=== PATIENT | male | born 1940 | race Caucasian/White ===

== ENCOUNTER → 2020-12-09 10:52 | Outpatient (REF) | payer OTHER, SELFPAY ==
[2020-12-09 11:31] LABS: MANUAL DIFF FLAG NO
[2020-12-09 11:37] LABS: Basophils Percent Auto 0.3 % (0-2); Eosinophils Absolute Auto 0.7 X10*3/uL (0.0-0.4); Eosinophils Percent Auto 7.7 % (0-4); Hematocrit 44.4 % (42-52); Hemoglobin 14.7 g/dl (14.0-18.0); Imm Gran Abs Auto 0.05 X10*3/uL (0.00-0.03); Imm Gran Pct Auto 0.6 % (0.0-0.4); Lymphocytes Absolute Auto 1.9 X10*3/uL (1.2-4.9); Lymphocytes Percent Auto 21.5 % (20-40); Mean Corpuscular HGB Conc 33.1 g/dl (31.0-36.0); Mean Corpuscular Hemoglobin 30.9 pg (27.0-33.0); Mean Corpuscular Volume 93.3 fL (80-98); Monocytes Absolute Auto 0.6 X10*3/uL (0.1-1.2); Neutrophils Absolute Auto 5.5 X10*3/uL (2.0-8.3); Neutrophils Percent Auto 62.9 % (45-73); Platelet Count 225 X10*3/uL (160-400); Red Blood Count 4.76 X10*6/uL (4.60-5.80); Red Cell Distribution Width 12.9 % (11.0-16.0); White Blood Count 8.8 X10*3/uL (4.8-10.8)
[2020-12-09 12:07] LABS: Alanine Aminotransferase 14 U/L (0-40); Albumin Level 4.3 g/dL (3.5-5.0); Alkaline Phosphatase 75 U/L (39-117); Anion Gap 10 (12-20); Aspartate Amino Transferase 21 U/L (5-37); Bilirubin Direct 0.2 mg/dL (0.0-0.5); Bilirubin Total 0.4 mg/dL (0.0-1.0); Blood Urea Nitrogen 19 mg/dL (9-16); Calcium 9.2 mg/dL (8.4-10.2); Carbon Dioxide 31 mmol/L (22-29); Chloride 106 mmol/L (96-108); Estimated Glomerular Filt Rate 58; Glucose Fasting 94 mg/dL (60-99); Potassium 4.2 mmol/L (3.3-5.1); Rheumatoid Factor < 15.0 IU/mL (<15.0); Sodium 143 mmol/L (135-145); Total Protein 7.4 g/dL (6.5-8.0)
[2020-12-13 22:32] LABS: Mixing Study - PT 10.9 sec (9.0-11.5); PTT LA 34 sec (< OR = 40)
== END ==
LOC: HO.CARD 10:52
PROVIDERS: PCP Internal Medicine; Visit Provider Nurse Practitioner Family
DX: Z01.811 Encounter for preprocedural respiratory examination (principal); I10 Essential (primary) hypertension; M19.90 Unspecified osteoarthritis, unspecified site; Z87.19 Personal history of other diseases of the digestive system
CPT/HCPCS: 36415; 80048; 80076; 85025; 85611; 85732; 86431

== ENCOUNTER → 2020-12-17 07:58 | Outpatient (REF) | payer OTHER, SELFPAY ==
--- NOTE | 2020-12-17 08:08 | ECG_ITS ---
Test Reason : M51.26 PREOP Blood Pressure : / mmHG Vent. Rate : 057 BPM Atrial Rate : 057 BPM P-R Int : 200 ms QRS Dur : 090 ms QT Int : 394 ms P-R-T Axes : 056 -53 082 degrees QTc Int : 383 ms Sinus bradycardia Left axis deviation Nonspecific T wave abnormality Abnormal ECG No previous ECGs available Referred By: Vilma Pollard Electronically Signed By:ANTON PERRIN MD
== END ==
LOC: HO.CARD 07:58
PROVIDERS: PCP Nurse Practitioner Family; Visit Provider Nurse Practitioner Family
DX: Z01.818 Encounter for other preprocedural examination (principal); M51.26 Other intervertebral disc displacement, lumbar region; R00.1 Bradycardia, unspecified; R94.31 Abnormal electrocardiogram [ECG] [EKG]
CPT/HCPCS: 93005

== ENCOUNTER 2021-07-01 08:03 | Outpatient (REF) | payer MEDICARE, MEDICAID, SELFPAY ==
[2021-07-01 09:12] LABS: MANUAL DIFF FLAG NO
[2021-07-01 09:17] LABS: Basophils Percent Auto 0.2 % (0-2); Eosinophils Absolute Auto 0.7 X10*3/uL (0.0-0.4); Eosinophils Percent Auto 7.7 % (0-4); Hematocrit 42.3 % (42-52); Hemoglobin 14.6 g/dl (14.0-18.0); Imm Gran Abs Auto 0.04 X10*3/uL (0.00-0.03); Imm Gran Pct Auto 0.4 % (0.0-0.4); Lymphocytes Absolute Auto 2.1 X10*3/uL (1.2-4.9); Lymphocytes Percent Auto 22.4 % (20-40); Mean Corpuscular HGB Conc 34.5 g/dl (31.0-36.0); Mean Corpuscular Hemoglobin 31.5 pg (27.0-33.0); Mean Corpuscular Volume 91.4 fL (80-98); Mean Platelet Volume 10.4 fL (9.4-12.4); Monocytes Absolute Auto 0.6 X10*3/uL (0.1-1.2); Monocytes Percent Auto 6.1 % (2-11); Neutrophils Absolute Auto 5.8 X10*3/uL (2.0-8.3); Neutrophils Percent Auto 63.2 % (45-73); Platelet Count 196 X10*3/uL (160-400); Red Blood Count 4.63 X10*6/uL (4.60-5.80); Red Cell Distribution Width 12.5 % (11.0-16.0); White Blood Count 9.2 X10*3/uL (4.8-10.8)
[2021-07-01 09:43] LABS: Cholesterol 157 mg/dL; HDL Cholesterol 33 mg/dL; LDL Cholesterol Calculated 99 mg/dl; Magnesium 1.9 mg/dL (1.6-2.6); Triglycerides 127 mg/dL
[2021-07-10 16:05] LABS: Vitamin D 25-OH, D2 16 ng/mL; Vitamin D 25-OH, D3 19 ng/mL; Vitamin D 25-OH, Total 35 ng/mL (30-100)
== END 2021-07-01 08:04 | disposition home or self-care (01) ==
LOC: HO.LAB 08:03
PROVIDERS: PCP Internal Medicine; Visit Provider Internal Medicine
DX: R25.2 Cramp and spasm (principal); E78.5 Hyperlipidemia, unspecified; I10 Essential (primary) hypertension; E55.9 Vitamin D deficiency, unspecified; D64.9 Anemia, unspecified; J44.9 Chronic obstructive pulmonary disease, unspecified
CPT/HCPCS: 36415; 80061; 82306; 83735; 85025

== ENCOUNTER 2021-07-27 08:20 | Emergency (ER) | payer MEDICARE, MEDICAID, SELFPAY ==
[2021-07-27 09:18] VITALS: BP 139/104; PULSE 87; RESP 18; TEMP 36.4; O2SAT 96; BMI 25.0
--- NOTE | 2021-07-27 09:30 | ED.MALEGU ---
HPI - Male Genitourinary General Chief complaint: Urogenital-Male Stated complaint: diff urinating Time Seen by Provider: 07/27/21 09:30 Source: patient Mode of arrival: ambulatory Limitations: no limitations History of Present Illness HPI Narrative: patient with difficulty urinating for the past few days, pain with urination, suprapubic tenderness Onset (ago): day(s) Duration: constant Severity: moderate Associated symptoms: Reports urinary retention and dysuria Related Data Home Medications Medication Instructions Recorded Confirmed apremilast 30 mg tablet (Otezla) 30 mg PO BID 06/30/21 06/30/21 Previous Rx's Medication Instructions Recorded acetaminophen 650 mg 650 mg PO Q8H PRN 90 Days #270 tab 03/16/21 tablet,extended release budesonide-formoterol HFA 80 2 puff INHALATION BID 30 Days 03/16/21 mcg-4.5 mcg/actuation aerosol #10.2 g inhaler lisinopril 10 1 tab PO DAILY 90 Days #90 tab 03/16/21 mg-hydrochlorothiazide 12.5 mg tablet oxybutynin chloride 10 mg 10 mg PO DAILY 90 Days #90 tab 03/16/21 tablet,extended release 24 hr polyethylene glycol 3350 17 17 g PO DAILY 10 Days #170 g 03/16/21 gram/dose oral powder (Miralax) terazosin 1 mg capsule 1 mg PO BEDTIME 90 Days #90 cap 03/16/21 tiotropium bromide 18 mcg capsule 1 cap INHALATION DAILY 60 Days #60 03/16/21 with inhalation device (Spiriva inh with HandiHaler) clotrimazole-betamethasone 1 1 appl TOPICAL BID 15 Days #45 g 04/08/21 %-0.05 % topical cream sennosides 8.6 mg tablet (senna) 8.6 mg PO BEDTIME PRN #30 tab 04/20/21 cholecalciferol (vitamin D3) 25 25 mcg PO DAILY 30 Days #30 cap 05/25/21 mcg (1,000 unit) capsule pantoprazole 40 mg tablet,delayed 40 mg PO DAILY 90 Days #90 tab 06/08/21 release gabapentin 300 mg capsule 300 mg PO TID 60 Days #180 cap 06/16/21 baclofen 20 mg tablet 20 mg PO BID PRN 90 Days #180 tab 06/30/21 celecoxib 200 mg capsule 200 mg PO DAILY PRN #30 cap 07/04/21 cefuroxime axetil 500 mg tablet 500 mg PO BID #14 tab 07/27/21 Allergies Allergy/AdvReac Type Severity Reaction Status Date / Time No Known Allergies Allergy Verified 06/30/21 08:47 Review of Systems Constitutional: Constitutional: Reports no additional constitutional complaints Eyes: Eyes: Reports no additional eye complaints ENT: Denies dizziness Cardiovascular: Cardiovascular: Reports no additional cardiovascular complaints Respiratory: Respiratory: Reports as per HPI Gastrointestinal: Gastrointestinal: Reports no additional gastrointestinal complaints Musculoskeletal: Musculoskeletal: Reports no additional musculoskeletal complaints Integumentary/Breasts: Skin/Breast: Denies rash Neurologic: Reports system reviewed and no additional complaints, except as documented, Denies dizziness and Denies Sensory deficit (Neuro) Psychiatric: Psychiatric: Denies anxiety [facility] Past Medical History Medical History Arthritis COPD (chronic obstructive pulmonary disease) Dermatitis Herniated lumbar intervertebral disc Hx of cirrhosis Hypertension Muscle cramps Pre-op chest exam Pre-op examination Psoriatic arthritis Surgical History No pertinent past surgical history Family History Family History Mother No problems noted. Father No problems noted. Social History Social History Housing: Apartment Alcohol intake: former Patient Tobacco Use Status: Current everyday Tobacco user Tobacco use type: Cigarette Cigarettes Per Day: 4 e-Cigarette/Vaping Use: Never Used Second Hand Smoke Exposure: No Advance Directives: No service: No Current occupational status: disabled Physical Exam Vital Signs: Vital Signs: Last Vital Signs Temp 97.5 F 07/27/21 09:51 Pulse 102 H 07/27/21 09:51 Resp 12 07/27/21 09:51 BP 161/74 H 07/27/21 09:51 Pulse Ox 96 07/27/21 09:18 Body Mass Index 25.0 Const: Other: elerly male slight cough Nutritional Appearance: thin Orientation/consciousness: oriented to person and patient oriented x3 Limitations: no limitations HENMT: Head: Yes normal to inspection Ears: external ears normal General nose exam: Normal external nose present Mouth: Normal oral and palatal mucosa present and oropharynx normal Throat: Yes posterior oropharynx normal Eyes: General: appearance normal, both eyes and all related structures Neck: Other: supple Neck: Yes normal visual inspection Chest: Chest palpation & inspection: normal inspection of the chest Resp: Auscultation: clear to auscultation bilaterally Cardio: Jugular venous distension: no JVD Rate: regular rate Rhythm: regular rhythm Heart sounds: S1 normal heart sound present and S2 normal heart sound present GI: Other: large bladder palpated Palpation (GI): Tenderness to palpation present (GI) : General: Yes no CVA tenderness Back/Spine/Pelvis: Back: no CVA tenderness Skin: General skin exam: no rashes or lesions noted Neuro: General: oriented to person and patient oriented x3 Cranial nerves: Yes CN's II-XII intact bilaterally Motor exam (neuro): 5/5 motor strength present throughout Sensory Exam: No Sensory deficit (Neuro) Extrem: General: Yes normal to inspection Psych: Appearance: grossly normal Course Reevaluation(s) Reevaluation #1: postvoid residual was 500 Time: 09:33 [facility] - Male Genitourinary Lab Data Labs: Lab Results 07/27/21 Range/Units 09:47 Urine Color YELLOW Urine Appearance HAZY Urine pH 6.0 (5.0-8.0) Ur Specific [place] 1.010 (1.005-1.025) Urine Protein NEG (NEG-TRACE) MG/DL Urine Glucose (UA) NEG (NEG) MG/DL Urine Ketones NEG (NEG) MG/DL Urine Blood TRACE (NEG) Urine Nitrite POS H (NEG) Ur Leukocyte Esterase 1+ H (NEG) Urine RBC 0-2 (0) /HPF Urine WBC 10-14 H (0-4) /HPF Ur Squamous Epith Cells Not Reportable Urine Bacteria 3+ /LPF Discharge Plan Discharge Clinical Impression: Urinary tract infection, Acute retention of urine Patient Disposition: Home, Self-Care Instructions: Urinary Retention in Men (ED), Urinary Incontinence (ED), Schulz Catheter Placement and Care (ED) Prescriptions: New cefuroxime axetil 500 mg tablet 500 mg PO BID Qty: 14 RF: 0 No Action acetaminophen 650 mg tablet extended release 650 mg PO Q8H PRN (Reason: fever or pain) 90 Days Qty: 270 RF: 1 budesonide-formoterol 80-4.5 mcg/actuation HFA aerosol inhaler 2 puff inhalation BID 30 Days Qty: 10.2 RF: 6 lisinopril-hydrochlorothiazide 10-12.5 mg tablet 1 tab PO DAILY 90 Days Qty: 90 RF: 3 oxybutynin chloride 10 mg tablet extended release 24hr 10 mg PO DAILY 90 Days Qty: 90 RF: 0 Spiriva with HandiHaler 18 mcg capsule, w/inhalation device 1 cap inhalation DAILY 60 Days Qty: 60 RF: 4 terazosin 1 mg capsule 1 mg PO BEDTIME 90 Days Qty: 90 RF: 1 polyethylene glycol 3350 [Miralax] 17 gram/dose powder 17 g PO DAILY 10 Days Qty: 170 RF: 0 clotrimazole-betamethasone 1-0.05 % cream 1 appl topical BID 15 Days Qty: 45 RF: 3 sennosides [senna] 8.6 mg tablet 8.6 mg PO BEDTIME PRN (Reason: for constipation) Qty: 30 RF: 6 cholecalciferol (vitamin D3) 25 mcg (1,000 unit) capsule 25 mcg PO DAILY 30 Days Qty: 30 RF: 11 pantoprazole 40 mg tablet,delayed release (DR/EC) 40 mg PO DAILY 90 Days Qty: 90 RF: 2 gabapentin 300 mg capsule 300 mg PO TID 60 Days Qty: 180 RF: 0 celecoxib 200 mg capsule 200 mg PO DAILY PRN (Reason: for pain) Qty: 30 RF: 2 Otezla 30 mg tablet 30 mg PO BID RF: 0 baclofen 20 mg tablet 20 mg PO BID PRN (Reason: muscle pain) 90 Days Qty: 180 RF: 0 Referrals: Malik Clay MD [Physician] - 1 week Shannan Guthrie MD [Primary Care Provider] - 1 week
[2021-07-27 09:51] VITALS: BP 161/74; PULSE 102; RESP 12; TEMP 36.4
--- NOTE | 2021-07-27 09:53 | PC.NURSE ---
pt received in bed a/o x 3. telugu-speaking, family member at bedside translating. Pt states 2 days of increasing retention. States painful and crampy abdomen. Bladder scan obtained, resulted [address] [facility] (med resident). Plan of care discussed and confirmed. Schulz cather placed, draining well. Patient reports relief. Urine sent for analysis. Resting now in NAD. Dispo pending.
[2021-07-27 10:00] LABS: Appearance Urine HAZY; Color Urine YELLOW; Glucose Urine UA NEG (NEG); Leukocyte Esterase Urine 1+ (NEG); Nitrite Urine POS (NEG); UACC Culture Trigger YES; Urine Blood TRACE (NEG); Urine Ketones NEG (NEG); Urine Protein NEG (NEG-TRACE)
[2021-07-27 10:10] LABS: RBC Urine 0-2 /HPF (0)
[2021-07-27 10:11] LABS: Bacteria Urine 3+ /LPF
== END 2021-07-27 11:25 | disposition home or self-care (01) ==
PROVIDERS: Emergency Provider Emergency Medicine; PCP Internal Medicine
DX: N39.0 Urinary tract infection, site not specified (principal); R33.9 Retention of urine, unspecified; I10 Essential (primary) hypertension; J44.9 Chronic obstructive pulmonary disease, unspecified; Z79.899 Other long term (current) drug therapy
CPT/HCPCS: 51798; 81001; 81003; 87086; 87088; 87186; 99283; 99284

== ENCOUNTER 2021-08-05 08:29 | Emergency (ER) | payer MEDICARE, MEDICAID, SELFPAY ==
--- NOTE | ~2021-08-05 | XR_ITS ---
EXAMINATION: XR CHEST CLINICAL INFORMATION: Cough. Chest pain. COMPARISON: None TECHNIQUE: Frontal view of the chest was obtained. FINDINGS: Focal patchy opacity within the right lung base. No pleural effusion or pneumothorax. Unremarkable cardiomediastinal silhouette. No acute osseous abnormality. XR/XR chest 1V IMPRESSION: Focal patchy opacity in the right lung base which could represent atelectasis versus early pneumonia.
--- NOTE | 2021-08-05 08:36 | ECG_ITS ---
Test Reason : CHEST PAIN Blood Pressure : / mmHG Vent. Rate : 076 BPM Atrial Rate : 076 BPM P-R Int : 164 ms QRS Dur : 086 ms QT Int : 354 ms P-R-T Axes : 059 -36 080 degrees QTc Int : 398 ms Normal sinus rhythm Left anterior fascicular block RSR' or QR pattern in V1 suggests right ventricular conduction delay Abnormal ECG No previous ECGs available Referred By: Generic ED Physician Electronically Signed By:ORLANDO MA MD
[2021-08-05 09:33] LABS: Anion Gap 12 (12-20); Blood Urea Nitrogen 21 mg/dL (9-16); Calcium 10.2 mg/dL (8.4-10.2); Carbon Dioxide 28 mmol/L (22-29); Chloride 101 mmol/L (96-108); Estimated Glomerular Filt Rate 58; Glucose Random 89 mg/dL (60-115); Potassium 4.4 mmol/L (3.3-5.1); Sodium 137 mmol/L (135-145)
[2021-08-05 09:35] LABS: COVID-19 Test Negative (Negative); IDNOW Serial# 9DD0AD1C
--- NOTE | 2021-08-05 10:15 | ED.CHESTPAIN ---
HPI - Chest Pain General Chief Complaint: Upper Respiratory Symptoms Stated Complaint: cough, chest pain Time Seen by Provider: 08/05/21 10:15 Source: patient Mode of arrival: ambulatory Limitations: no limitations History of Present Illness HPI narrative: 80 y/o male with history of COPD, HTN, psoriatic arthritis, who presents to the ER with cough and chest pains for the last 1 week. He has been to several surrounding emergency department but ended up waiting in the waiting room for several hours and then going home without being seen. He has been coughing up clear phlegm and having several coughing fits. His chest hurts the worst when he is having coughing fits. The pain is located throughout his entire anterior chest wall and under his right axilla, worse with cough, movement and palpation. He also reports intermittent bouts of diarrhea and vomiting, none in the past 2 days. His appetite has been poor. He has had no fever or chills. No shortness of breath or dyspnea on exertion. No known sick contacts and he is fully vaccinated against COVID-19 MD complaint: chest pain and other (Productive cough) Pertinent past history: other (COPD) Onset (ago): week(s) (1) Timing of current episode: episodic Prior episodes: Yes Onset: other (During coughing episodes) Pain location: left chest, right chest and lateral Pain radiation: none Severity: moderate Quality: aching Relieving factors: rest Exacerbating factors: palpation, movement and other (Cough) Associated symptoms: nausea, vomiting and cough Treatment prior to arrival: none Risk Factors Coronary artery disease risk factors: hyperlipidemia and hypertension Thoracic aortic dissection risk factors: none Related Data Home Medications Medication Instructions Recorded Confirmed apremilast 30 mg tablet (Otezla) 30 mg PO BID 06/30/21 06/30/21 celecoxib 200 mg capsule 200 mg PO DAILY PRN 08/05/21 Previous Rx's Medication Instructions Recorded acetaminophen 650 mg 650 mg PO Q8H PRN 90 Days #270 tab 03/16/21 tablet,extended release budesonide-formoterol HFA 80 2 puff INHALATION BID 30 Days 03/16/21 mcg-4.5 mcg/actuation aerosol #10.2 g inhaler lisinopril 10 1 tab PO DAILY 90 Days #90 tab 03/16/21 mg-hydrochlorothiazide 12.5 mg tablet polyethylene glycol 3350 17 17 g PO DAILY 10 Days #170 g 03/16/21 gram/dose oral powder (Miralax) terazosin 1 mg capsule 1 mg PO BEDTIME 90 Days #90 cap 03/16/21 tiotropium bromide 18 mcg capsule 1 cap INHALATION DAILY 60 Days #60 03/16/21 with inhalation device (Spiriva inh with HandiHaler) clotrimazole-betamethasone 1 1 appl TOPICAL BID 15 Days #45 g 04/08/21 %-0.05 % topical cream sennosides 8.6 mg tablet (senna) 8.6 mg PO BEDTIME PRN #30 tab 04/20/21 cholecalciferol (vitamin D3) 25 25 mcg PO DAILY 30 Days #30 cap 05/25/21 mcg (1,000 unit) capsule pantoprazole 40 mg tablet,delayed 40 mg PO DAILY 90 Days #90 tab 06/08/21 release gabapentin 300 mg capsule 300 mg PO TID 60 Days #180 cap 06/16/21 baclofen 20 mg tablet 20 mg PO BID PRN 90 Days #180 tab 06/30/21 cefuroxime axetil 500 mg tablet 500 mg PO BID #14 tab 07/27/21 oxybutynin chloride 10 mg 10 mg PO DAILY #90 tab 07/31/21 tablet,extended release 24 hr amoxicillin-potassium clavulanate 1 tab PO BID #14 tab 08/05/21 1,000 mg-62.5 mg tablet,ext.rel 12hr (Augmentin XR) azithromycin 250 mg tablet See Rx Instructions .ROUTE 08/05/21 (Zithromax Z-Juanpablo) .COMPLEX #6 tab benzonatate 100 mg capsule 100 mg PO TID PRN #14 cap 08/05/21 (Tessalon Jenna) ondansetron 4 mg disintegrating 4 mg PO Q8H PRN #6 tab 08/05/21 tablet prednisone 20 mg tablet 40 mg PO DAILY #10 tab 08/05/21 Allergies Allergy/AdvReac Type Severity Reaction Status Date / Time No Known Allergies Allergy Verified 06/30/21 08:47 Review of Systems Review of Systems: Constitutional: No Fever, No Chills ENT/Mouth: + sore throat, No Rhinorrhea, No Swallowing Difficulty Cardiovascular: + Chest Pain, No SOB, No Orthopnea, No Edema Respiratory: + Cough, + Sputum, No Wheezing, No dyspnea Gastrointestinal: + Nausea, + Vomiting, + Diarrhea, No abdominal Pain Genitourinary: No Dysuria, No Urinary Frequency, No Hematuria Musculoskeletal: No joint pain, No Myalgias Skin: No Skin Lesions, No rash Neuro: No Weakness, No Numbness, No Dizziness, No Headache Heme/Lymph: No Bruising, No Lymphadenopathy [facility] Past Medical History Medical History Arthritis COPD (chronic obstructive pulmonary disease) Dermatitis Herniated lumbar intervertebral disc Hx of cirrhosis Hypertension Muscle cramps Pre-op chest exam Pre-op examination Psoriatic arthritis Surgical History No pertinent past surgical history Family History Family History Mother No problems noted. Father No problems noted. Social History Social History Housing: Apartment Alcohol intake: former Patient Tobacco Use Status: Current everyday Tobacco user Tobacco use type: Cigarette Cigarettes Per Day: 4 e-Cigarette/Vaping Use: Never Used Second Hand Smoke Exposure: No Use of substances other than those prescribed or required for medical reasons: No Advance Directives: No service: No Current occupational status: disabled Physical Exam Vital Signs: Vital Signs: Last Vital Signs Temp 98.2 F 08/05/21 11:14 Pulse 73 08/05/21 11:14 Resp 18 08/05/21 11:14 BP 130/68 08/05/21 11:14 Pulse Ox 97 08/05/21 11:14 Body Mass Index 25.0 Appearance: Alert. Oriented X3. No acute distress. Eyes: Pupils equal, round and reactive to light. ENT: Pharynx with mild generalized erythema without tonsillar swelling or exudate. Neck: Normal inspection. Neck supple. CVS: Normal heart rate and rhythm. Pulses normal. Respiratory: No respiratory distress. Breath sounds decreased in RLL, no rhonchi or wheezing. Abdomen: Soft and nontender. +BS x4 Skin: Skin warm and dry. Normal skin color. Normal skin turgor. No rashes. Extremities: No lower extremity edema. No calf tenderness. Neuro: Oriented X 3. No motor deficit. No sensory deficit. Ambulates with a steady gait using his cane. Course Course Course Narrative: 80 y.o male with history of COPD, cirrhosis, psoriasis, HTN who presents with 1 week of productive cough, associated chest pains and intermittent N/V/D. No abdominal pain, SOB or CLOUD. His VS are normal and his lung sounds are only diminished in RLL, no wheezing. He does not appear to be in acute COPD exacerbation. Will get EKG, CXR, COVID and basic labs. Reevaluation(s) Reevaluation #1: CXR showing early RLL infiltrate. WBC 14. Labs otherwise unremarkable. Troponin of 5.9, not clinically significant given age and duration of symptoms. His chest pains are not likely to be cardiac in nature, rather from coughing. He remains slightly stable in no respiratory distress. He is stable for discharge with treatment for community-acquired pneumonia-will treat with combination of Augmentin and azithromycin. He is encouraged follow-up with his primary care early next week. MDM - Chest Pain Lab Data Attestation: I reviewed the patient's lab results. Result diagrams: 08/05/21 11:51 08/05/21 09:09 Labs: Lab Results 08/05/21 08/05/21 08/05/21 Range/Units 09:09 09:09 11:51 WBC 14.2 H (4.8-10.8) X10*3/uL RBC 4.72 (4.60-5.80) X10*6/uL Hgb 14.7 (14.0-18.0) g/dl Hct 43.5 (42-52) % MCV 92.2 (80-98) fL MCH 31.1 (27.0-33.0) pg MCHC 33.8 (31.0-36.0) g/dl RDW 12.0 (11.0-16.0) % Plt Count 340 D (160-400) X10*3/uL MPV 9.1 L (9.4-12.4) fL Immature Gran % (Auto) 0.8 H (0.0-0.4) % Neut % (Auto) 74.9 H (45-73) % Lymph % (Auto) 15.2 L (20-40) % [place] % (Auto) 4.9 (2-11) % Eos % (Auto) 3.9 (0-4) % Baso % (Auto) 0.3 (0-2) % Lymph # (Auto) 2.2 (1.2-4.9) X10*3/uL [place] # (Auto) 0.7 (0.1-1.2) X10*3/uL Eos # (Auto) 0.6 H (0.0-0.4) X10*3/uL Baso # (Auto) 0.0 (0.0-0.2) X10*3/uL Abs Immat Gran (auto) 0.11 H (0.00-0.03) X10*3/uL Absolute Neuts (auto) 10.7 H (2.0-8.3) X10*3/uL Absolute Nucleated RBC 0.000 (0.0-0.012) X10*3/uL Nucleated RBC % (auto) 0.0 (0.0-0.2) /100WBC Sodium 137 (135-145) mmol/L Potassium 4.4 (3.3-5.1) mmol/L Chloride 101 (96-108) mmol/L Carbon Dioxide 28 (22-29) mmol/L Anion Gap 12 (12-20) BUN 21 H (9-16) mg/dL Creatinine 1.21 (0.5-1.4) mg/dL Estim Creat Clear Calc TNP Estimated GFR 58 Random Glucose 89 (60-115) mg/dL Calcium 10.2 D (8.4-10.2) mg/dL Troponin I High Sens (<3.5-35.0) ng/L COVID-19 (TOMER) Negative (Negative) COVID-19 Clin Com See Note 08/05/21 Range/Units 11:51 WBC (4.8-10.8) X10*3/uL RBC (4.60-5.80) X10*6/uL Hgb (14.0-18.0) g/dl Hct (42-52) % MCV (80-98) fL MCH (27.0-33.0) pg MCHC (31.0-36.0) g/dl RDW (11.0-16.0) % Plt Count (160-400) X10*3/uL MPV (9.4-12.4) fL Immature Gran % (Auto) (0.0-0.4) % Neut % (Auto) (45-73) % Lymph % (Auto) (20-40) % [place] % (Auto) (2-11) % Eos % (Auto) (0-4) % Baso % (Auto) (0-2) % Lymph # (Auto) (1.2-4.9) X10*3/uL [place] # (Auto) (0.1-1.2) X10*3/uL Eos # (Auto) (0.0-0.4) X10*3/uL Baso # (Auto) (0.0-0.2) X10*3/uL Abs Immat Gran (auto) (0.00-0.03) X10*3/uL Absolute Neuts (auto) (2.0-8.3) X10*3/uL Absolute Nucleated RBC (0.0-0.012) X10*3/uL Nucleated RBC % (auto) (0.0-0.2) /100WBC Sodium (135-145) mmol/L Potassium (3.3-5.1) mmol/L Chloride (96-108) mmol/L Carbon Dioxide (22-29) mmol/L Anion Gap (12-20) BUN (9-16) mg/dL Creatinine (0.5-1.4) mg/dL Estim Creat Clear Calc Estimated GFR Random Glucose (60-115) mg/dL Calcium (8.4-10.2) mg/dL Troponin I High Sens 5.9 (<3.5-35.0) ng/L COVID-19 (TOMER) (Negative) COVID-19 Clin Com ECG Data ECG #1: Attestation: I personally reviewed and interpreted this ECG as follows: ECG interpretation date: 08/05/21 Prior ECG tracings: available for review Interpretation: normal sinus rhythm, HR 76 bpm, normal SC interval, No ST segment elevations or depressions Discharge Plan Discharge Clinical Impression: Pneumonia Qualifiers: Pneumonia type: due to unspecified organism Laterality: right Lung location: lower lobe of lung Qualified Code(s): J18.9 - Pneumonia, unspecified organism Patient Disposition: Home, Self-Care Instructions: Community Acquired Pneumonia (ED) Additional Instructions: Your chest x-ray showed early pneumonia in your right lower lung. Take the prescribed antibiotics as directed. Complete the entire course. Take the prescribed Tessalon as needed for cough. Recommend [id number] Mucinex 1200 mg 2 times a day for 1 week. Increase your hydration and stay well rested. Use all of your prescribed inhalers as directed. Follow-up with your doctor early next week. If you have any worsening symptoms come back to the ER for further evaluation. Prescriptions: New amoxicillin-pot clavulanate [Augmentin XR] 1,000-62.5 mg tablet extended release 12 hr 1 tab PO BID Qty: 14 RF: 0 prednisone 20 mg tablet 40 mg PO DAILY Qty: 10 RF: 0 ondansetron 4 mg tablet,disintegrating 4 mg PO Q8H PRN (Reason: nausea and vomiting) Qty: 6 RF: 0 azithromycin [Zithromax Z-Juanpablo] 250 mg tablet See Rx Instructions .ROUTE .COMPLEX Qty: 6 RF: 0 benzonatate [Tessalon Perles] 100 mg capsule 100 mg PO TID PRN (Reason: cough) Qty: 14 RF: 0 No Action acetaminophen 650 mg tablet extended release 650 mg PO Q8H PRN (Reason: fever or pain) 90 Days Qty: 270 RF: 1 budesonide-formoterol 80-4.5 mcg/actuation HFA aerosol inhaler 2 puff inhalation BID 30 Days Qty: 10.2 RF: 6 lisinopril-hydrochlorothiazide 10-12.5 mg tablet 1 tab PO DAILY 90 Days Qty: 90 RF: 3 Spiriva with HandiHaler 18 mcg capsule, w/inhalation device 1 cap inhalation DAILY 60 Days Qty: 60 RF: 4 terazosin 1 mg capsule 1 mg PO BEDTIME 90 Days Qty: 90 RF: 1 polyethylene glycol 3350 [Miralax] 17 gram/dose powder 17 g PO DAILY 10 Days Qty: 170 RF: 0 clotrimazole-betamethasone 1-0.05 % cream 1 appl topical BID 15 Days Qty: 45 RF: 3 sennosides [senna] 8.6 mg tablet 8.6 mg PO BEDTIME PRN (Reason: for constipation) Qty: 30 RF: 6 cholecalciferol (vitamin D3) 25 mcg (1,000 unit) capsule 25 mcg PO DAILY 30 Days Qty: 30 RF: 11 pantoprazole 40 mg tablet,delayed release (DR/EC) 40 mg PO DAILY 90 Days Qty: 90 RF: 2 gabapentin 300 mg capsule 300 mg PO TID 60 Days Qty: 180 RF: 0 oxybutynin chloride 10 mg tablet extended release 24hr 10 mg PO DAILY Qty: 90 RF: 0 celecoxib 200 mg capsule 200 mg PO DAILY PRN (Reason: for pain) RF: 0 cefuroxime axetil 500 mg tablet 500 mg PO BID Qty: 14 RF: 0 Otezla 30 mg tablet 30 mg PO BID RF: 0 baclofen 20 mg tablet 20 mg PO BID PRN (Reason: muscle pain) 90 Days Qty: 180 RF: 0 Referrals: Shannan Guthrie MD [Primary Care Provider] - 3 days (CAP) Print Language: Swedish
[2021-08-05 11:14] VITALS: BP 130/68; PULSE 73; RESP 18; TEMP 36.8; O2SAT 97; BMI 25.0
[2021-08-05 12:09] LABS: MANUAL DIFF FLAG NO
[2021-08-05 12:12] LABS: Basophils Percent Auto 0.3 % (0-2); Eosinophils Absolute Auto 0.6 X10*3/uL (0.0-0.4); Eosinophils Percent Auto 3.9 % (0-4); Hematocrit 43.5 % (42-52); Hemoglobin 14.7 g/dl (14.0-18.0); Imm Gran Abs Auto 0.11 X10*3/uL (0.00-0.03); Imm Gran Pct Auto 0.8 % (0.0-0.4); Lymphocytes Absolute Auto 2.2 X10*3/uL (1.2-4.9); Lymphocytes Percent Auto 15.2 % (20-40); Mean Corpuscular HGB Conc 33.8 g/dl (31.0-36.0); Mean Corpuscular Hemoglobin 31.1 pg (27.0-33.0); Mean Corpuscular Volume 92.2 fL (80-98); Mean Platelet Volume 9.1 fL (9.4-12.4); Monocytes Absolute Auto 0.7 X10*3/uL (0.1-1.2); Monocytes Percent Auto 4.9 % (2-11); Neutrophils Absolute Auto 10.7 X10*3/uL (2.0-8.3); Neutrophils Percent Auto 74.9 % (45-73); Platelet Count 340 X10*3/uL (160-400); Red Blood Count 4.72 X10*6/uL (4.60-5.80); White Blood Count 14.2 X10*3/uL (4.8-10.8)
[2021-08-05 12:30] LABS: Troponin-I High Sensitivity 5.9 ng/L (<3.5-35.0)
== END 2021-08-05 13:00 | disposition home or self-care (01) ==
PROVIDERS: Emergency Provider Emergency Medicine; PCP Internal Medicine
DX: J18.9 Pneumonia, unspecified organism (principal); R50.9 Fever, unspecified; I10 Essential (primary) hypertension; E78.5 Hyperlipidemia, unspecified; F17.210 Nicotine dependence, cigarettes, uncomplicated; Z20.822 Contact with and (suspected) exposure to COVID-19; Z71.6 Tobacco abuse counseling; Z79.899 Other long term (current) drug therapy
CPT/HCPCS: 36415; 71045; 80048; 84484; 85025; 87635; 93005; 99283; 99284

== ENCOUNTER 2021-08-09 08:24 | Emergency (ER) | payer MEDICARE, MEDICAID, SELFPAY ==
--- NOTE | ~2021-08-09 | XR_ITS ---
EXAMINATION: XR HAND, LEFT CLINICAL INFORMATION: Trauma, pain COMPARISON: None TECHNIQUE: PA, lateral, and oblique views of the left hand. FINDINGS: There is no visible fracture or dislocation. The ulnar variance is neutral. No erosive arthropathy. No destructive process. XR/XR hand LT min 3V IMPRESSION: No fracture or dislocation.
[2021-08-09 09:07] VITALS: BP 156/70; PULSE 67; RESP 16; TEMP 36.2; O2SAT 98; BMI 25.0
--- NOTE | 2021-08-09 09:15 | ED.WOUNDLAC ---
HPI - Wound/Laceration General Chief Complaint: Wound/Laceration Stated Complaint: finger lac Time Seen by Provider: 08/09/21 09:14 Source: patient and other (ROOFING APPRENTICE who is interpreting) Mode of arrival: ambulatory Limitations: language barrier History of Present Illness HPI narrative: 80-year-old male with a history of muscle cramps presents for laceration to the base of his left index finger. Patient got a muscle cramp in his left hand yesterday that was so severe he bent his left finger backwards and tore the skin. Patient is not complaining of any pain in his hand. No pain in his MCP joint of his index finger. Patient is here with his ROOFING APPRENTICE, who is translating, ROOFING APPRENTICE says that patient gets severe muscle cramps and a few months ago had a severe muscle cramp in his leg and started beating his leg with a frying [place]. Patient is up-to-date on his tetanus and got tetanus vaccination booster 2 months ago Related Data Home Medications Medication Instructions Recorded Confirmed apremilast 30 mg tablet (Otezla) 30 mg PO BID 06/30/21 06/30/21 celecoxib 200 mg capsule 200 mg PO DAILY PRN 08/05/21 Previous Rx's Medication Instructions Recorded acetaminophen 650 mg 650 mg PO Q8H PRN 90 Days #270 tab 03/16/21 tablet,extended release budesonide-formoterol HFA 80 2 puff INHALATION BID 30 Days 03/16/21 mcg-4.5 mcg/actuation aerosol #10.2 g inhaler lisinopril 10 1 tab PO DAILY 90 Days #90 tab 03/16/21 mg-hydrochlorothiazide 12.5 mg tablet polyethylene glycol 3350 17 17 g PO DAILY 10 Days #170 g 03/16/21 gram/dose oral powder (Miralax) terazosin 1 mg capsule 1 mg PO BEDTIME 90 Days #90 cap 03/16/21 tiotropium bromide 18 mcg capsule 1 cap INHALATION DAILY 60 Days #60 03/16/21 with inhalation device (Spiriva inh with HandiHaler) clotrimazole-betamethasone 1 1 appl TOPICAL BID 15 Days #45 g 04/08/21 %-0.05 % topical cream sennosides 8.6 mg tablet (senna) 8.6 mg PO BEDTIME PRN #30 tab 04/20/21 cholecalciferol (vitamin D3) 25 25 mcg PO DAILY 30 Days #30 cap 05/25/21 mcg (1,000 unit) capsule pantoprazole 40 mg tablet,delayed 40 mg PO DAILY 90 Days #90 tab 06/08/21 release gabapentin 300 mg capsule 300 mg PO TID 60 Days #180 cap 06/16/21 baclofen 20 mg tablet 20 mg PO BID PRN 90 Days #180 tab 06/30/21 cefuroxime axetil 500 mg tablet 500 mg PO BID #14 tab 07/27/21 oxybutynin chloride 10 mg 10 mg PO DAILY #90 tab 07/31/21 tablet,extended release 24 hr amoxicillin-potassium clavulanate 1 tab PO BID #14 tab 08/05/21 1,000 mg-62.5 mg tablet,ext.rel 12hr (Augmentin XR) azithromycin 250 mg tablet See Rx Instructions .ROUTE 08/05/21 (Zithromax Z-Juanpablo) .COMPLEX #6 tab benzonatate 100 mg capsule 100 mg PO TID PRN #14 cap 08/05/21 ([place]) ondansetron 4 mg disintegrating 4 mg PO Q8H PRN #6 tab 08/05/21 tablet prednisone 20 mg tablet 40 mg PO DAILY #10 tab 08/05/21 Allergies Allergy/AdvReac Type Severity Reaction Status Date / Time No Known Allergies Allergy Verified 06/30/21 08:47 Review of Systems Constitutional: Constitutional: Denies chills, Denies fever(s), Denies frequent falls, Denies headache(s), Denies malaise and Denies weakness ENT: Denies dizziness, Denies otalgia, Denies headache(s), Denies nasal discharge and Denies sore throat Cardiovascular: Cardiovascular: Denies chest pain and Denies dyspnea Respiratory: Respiratory: Denies chest congestion, Denies cough and Denies dyspnea Gastrointestinal: Gastrointestinal: Denies abdominal pain, Denies diarrhea, Denies nausea and Denies vomiting Musculoskeletal: Musculoskeletal: Denies deformity, Denies arthralgias, Denies joint swelling, Denies limited range of motion, Reports muscle cramps, Denies numbness, Denies radiating pain into limb, Denies stiffness and Denies tingling Integumentary/Breasts: Comments: Laceration to left hand Neurologic: Denies dizziness, Denies frequent falls, Denies headache(s), Denies numbness, Denies Sensory deficit (Neuro), Denies tingling and Denies weakness PMFSH Past Medical History Medical History Arthritis COPD (chronic obstructive pulmonary disease) Dermatitis Herniated lumbar intervertebral disc Hx of cirrhosis Hypertension Muscle cramps Pre-op chest exam Pre-op examination Psoriatic arthritis Surgical History No pertinent past surgical history Family History Family History Mother No problems noted. Father No problems noted. Social History Social History Housing: Apartment Alcohol intake: former Patient Tobacco Use Status: Current everyday Tobacco user Tobacco use type: Cigarette Cigarettes Per Day: 4 e-Cigarette/Vaping Use: Never Used Second Hand Smoke Exposure: No Advance Directives: No Advance Directives Information Provided: No service: No Current occupational status: disabled Physical Exam Vital Signs: Vital Signs: Last Vital Signs Temp 97.2 F 08/09/21 09:07 Pulse 67 08/09/21 09:07 Resp 16 08/09/21 09:07 BP 156/70 H 08/09/21 09:07 Pulse Ox 98 08/09/21 09:07 Body Mass Index 25.0 Const: General: cooperative, no acute distress, well developed, alert and awake Nutritional Appearance: well nourished Orientation/consciousness: patient oriented x3 Limitations: no limitations Eyes: Pupils: Equal, round and reactive pupils present Resp: Effort & Inspection: normal respiratory effort and able to speak in complete sentences Auscultation: clear to auscultation bilaterally, no crackles, no rales, no rhonchi and no wheezes Cardio: Rate: regular rate Rhythm: regular rhythm Heart sounds: S1 normal heart sound present and S2 normal heart sound present GI: Inspection: Yes normal to inspection Palpation (GI): Soft to palpation, nontender, no guarding and not rigid Percussion: Yes normal to percussion Auscultation: normal bowel sounds Skin: Trauma: laceration left palmar palm Neuro: General: patient oriented x3, tone normal and moves all extremities Cranial nerves: Yes Equal, round and reactive pupils present Sensory Exam: No Sensory deficit (Neuro) Extrem: Left upper extremity: full ROM, normal capillary refill, no joint enlargement and hand (laceration to palm) Details: normal to inspection, normal capillary refill, neuromotor exam normal, neurosensory exam normal, tendon exam normal, vascular exam Details: radial pulse present Details: 2+ and normal capillary refill, normal ROM of fingers and no swelling; Negative for no tenderness and no unusual warmth; No no cyanosis and no edema Psych: Appearance: grossly normal Affect: normal affect Attitude: cooperative Thought process: Normal thought process present Course Course Course Narrative: 80-year-old male here with his ROOFING APPRENTICE for a laceration at the base of his left index finger extending into his palm after bending his left index finger so far backwards yesterday that he tore the skin due to muscle cramps. Will get x-ray of hand. Patient has intact upper extremity pulses, sensation, motor strength, Reevaluation(s) Reevaluation #1: Negative hand x-ray. Sutured patient's laceration with 4 sutures, gave infection precautions, return instructions, and wound care instructions. During my injection of lidocaine, patient jerked his hand away and I was stuck with a needle. Timothy hepatitis and HIV labs. At this time all labs are negative except for hepatitis-A. Patient is here with his ROOFING APPRENTICE who has been acting as footwear factory worker, ROOFING APPRENTICE states that patient has no past medical history of HIV or hepatitis no IV drug use history. MDM - Wound/Laceration Lab Data Labs: Lab Results 08/09/21 Range/Units 11:24 Hep Bs Antigen Negative (Negative) Hep Bs Antibody NONREACTIVE (Nonreactive) Hep B Core Total Ab Nonreactive (Nonreactive) Hepatitis C Ab (EIA) Nonreactive (Nonreactive) HIV 1&2 Ab/P24 Ag 4thGn Nonreactive (Nonreactive) Procedures Laceration Laceration 1: Site: hand Side (If applicable): left Size (cm): 2 Description: linear Depth: simple, single layer Local Anesthetic: lidocaine 1% Amount of anesthesia used (mL): 5 Pre-repair: wound explored, irrigated extensively and deep structures intact Skin layer closed with: vicryl Size (cm): 3-0 Number of sutures: 4 Technique: simple, interrupted Discharge Plan Discharge Clinical Impression: Laceration Patient Disposition: Home, Self-Care Instructions: Laceration (ED) Additional Instructions: Please leave dressing in place until tomorrow mid day. After that take dressing off, washed with soap and water, apply a thin layer bacitracin and a nonstick dressing and reapply the finger splint. Do that for the next 4-5 days. After that you can just wash with soap and water. Please return in 7 days to have 4 sutures removed. Please return on August 15 or . If redness swelling or warmth or pain develops, please return to be seen sooner. Prescriptions: No Action acetaminophen 650 mg tablet extended release 650 mg PO Q8H PRN (Reason: fever or pain) 90 Days Qty: 270 RF: 1 budesonide-formoterol 80-4.5 mcg/actuation HFA aerosol inhaler 2 puff inhalation BID 30 Days Qty: 10.2 RF: 6 lisinopril-hydrochlorothiazide 10-12.5 mg tablet 1 tab PO DAILY 90 Days Qty: 90 RF: 3 Spiriva with HandiHaler 18 mcg capsule, w/inhalation device 1 cap inhalation DAILY 60 Days Qty: 60 RF: 4 terazosin 1 mg capsule 1 mg PO BEDTIME 90 Days Qty: 90 RF: 1 polyethylene glycol 3350 [Miralax] 17 gram/dose powder 17 g PO DAILY 10 Days Qty: 170 RF: 0 clotrimazole-betamethasone 1-0.05 % cream 1 appl topical BID 15 Days Qty: 45 RF: 3 sennosides [senna] 8.6 mg tablet 8.6 mg PO BEDTIME PRN (Reason: for constipation) Qty: 30 RF: 6 cholecalciferol (vitamin D3) 25 mcg (1,000 unit) capsule 25 mcg PO DAILY 30 Days Qty: 30 RF: 11 pantoprazole 40 mg tablet,delayed release (DR/EC) 40 mg PO DAILY 90 Days Qty: 90 RF: 2 gabapentin 300 mg capsule 300 mg PO TID 60 Days Qty: 180 RF: 0 oxybutynin chloride 10 mg tablet extended release 24hr 10 mg PO DAILY Qty: 90 RF: 0 celecoxib 200 mg capsule 200 mg PO DAILY PRN (Reason: for pain) RF: 0 amoxicillin-pot clavulanate [Augmentin XR] 1,000-62.5 mg tablet extended release 12 hr 1 tab PO BID Qty: 14 RF: 0 prednisone 20 mg tablet 40 mg PO DAILY Qty: 10 RF: 0 ondansetron 4 mg tablet,disintegrating 4 mg PO Q8H PRN (Reason: nausea and vomiting) Qty: 6 RF: 0 azithromycin [Zithromax Z-Juanpablo] 250 mg tablet See Rx Instructions .ROUTE .COMPLEX Qty: 6 RF: 0 benzonatate [[place]] 100 mg capsule 100 mg PO TID PRN (Reason: cough) Qty: 14 RF: 0 cefuroxime axetil 500 mg tablet 500 mg PO BID Qty: 14 RF: 0 Otezla 30 mg tablet 30 mg PO BID RF: 0 baclofen 20 mg tablet 20 mg PO BID PRN (Reason: muscle pain) 90 Days Qty: 180 RF: 0 Interventions: ED Discharge Assessment Last Done: 08/09/21 11:57 Discharge Date/Time: 08/09/21 12:00
[2021-08-09] MEDS: Lidocaine HCl 1 % 20 ML VIAL 10 ML INFILTRATI (10:22)
[2021-08-09 12:17] LABS: HBsAGNum1 0.26 S/CO (0.00-0.99); HIV AB/AG Nonreactive (Nonreactive); HIV Num 1 0.08 S/CO (0.00-0.99); Hepatitis B Surface Antigen Negative (Negative); ~HepC Num1 0.17 S/CO (0.00-0.79); ~Hepatitis C Antibody Nonreactive (Nonreactive)
[2021-08-09 12:19] LABS: HBc Num1 0.33 S/CO (0.00-0.79); Hepatitis B Core Antibody Nonreactive (Nonreactive); ~Hepatitis B Surface Antibody NONREACTIVE (Nonreactive)
[2021-08-10 07:54] LABS: Hepatitis A Antibody IgM 0.67 Index (0-0.79); ~Hepatitis A Antibody IgM Nonreactive (Nonreactive)
== END 2021-08-09 12:00 | disposition home or self-care (01) ==
PROVIDERS: Physician Assistant; Emergency Provider Emergency Medicine; PCP Internal Medicine
DX: S61.211A Laceration without foreign body of left index finger without damage to nail, initial encounter (principal); I10 Essential (primary) hypertension; J44.9 Chronic obstructive pulmonary disease, unspecified; X58.XXXA Exposure to other specified factors, initial encounter; Y93.9 Activity, unspecified; Y92.9 Unspecified place or not applicable; Y99.9 Unspecified external cause status; Z11.59 Encounter for screening for other viral diseases
CPT/HCPCS: 12001; 36415; 73130; 86704; 86706; 86709; 86803; 87340; 99284

== ENCOUNTER → 2021-08-12 11:19 | Outpatient (BNVA) | payer MEDICARE, MEDICAID, SELFPAY | PROVIDERS: PCP Internal Medicine; Visit Provider Urology | DX: N40.1 Benign prostatic hyperplasia with lower urinary tract symptoms (principal); N13.8 Other obstructive and reflux uropathy | CPT/HCPCS: 51700; 51701; 51798; 99202 ==

== ENCOUNTER → 2021-08-26 10:53 | Outpatient (BNVA) | payer MEDICARE, MEDICAID, SELFPAY | PROVIDERS: PCP Internal Medicine; Visit Provider Urology | DX: N40.1 Benign prostatic hyperplasia with lower urinary tract symptoms (principal); N13.8 Other obstructive and reflux uropathy; R33.9 Retention of urine, unspecified | CPT/HCPCS: 51700; 51701; 99202; 99212 ==

== ENCOUNTER 2021-09-26 08:06 | Emergency (ER) | payer MEDICARE, MEDICAID, SELFPAY ==
[2021-09-26 08:45] VITALS: BP 120/59; PULSE 67; RESP 16; TEMP 36.7; O2SAT 96; BMI 25.5
--- NOTE | 2021-09-26 08:50 | ED.MALEGU ---
HPI - Male Genitourinary General Chief complaint: Urogenital-Male Stated complaint: cath split Time Seen by Provider: 09/26/21 08:40 Source: patient and family Mode of arrival: ambulatory Limitations: language barrier ( [place]alese-speaking) History of Present Illness HPI Narrative: 81-year-old male with a past medical history of hypertension, arthritis, COPD, pulmonary nodules, urinary retention with incomplete bladder emptying, BPH with urinary obstructions/LUTs with chronic Schulz catheter in place presenting to the ED after the tubing from his Schulz catheter broke requesting for his Schulz catheter to be replaced. He denies any other symptoms related to this. Reports that he has a follow-up appointment within the next 1-2 weeks with his urologist. Complaint: other ( Needs Schulz catheter replaced) Onset (ago): day(s) ( today) Duration: constant Associated symptoms: Reports denies other symptoms Related Data Home Medications Medication Instructions Recorded Confirmed apremilast 30 mg tablet (Otezla) 30 mg PO BID 06/30/21 09/08/21 calcipotriene 0.005 % topical 1 appl TOPICAL BID 08/12/21 09/08/21 ointment Previous Rx's Medication Instructions Recorded budesonide-formoterol HFA 80 2 puff INHALATION BID 30 Days 03/16/21 mcg-4.5 mcg/actuation aerosol #10.2 g inhaler lisinopril 10 1 tab PO DAILY 90 Days #90 tab 03/16/21 mg-hydrochlorothiazide 12.5 mg tablet polyethylene glycol 3350 17 17 g PO DAILY 10 Days #170 g 03/16/21 gram/dose oral powder (Miralax) tiotropium bromide 18 mcg capsule 1 cap INHALATION DAILY 60 Days #60 03/16/21 with inhalation device (Spiriva inh with HandiHaler) clotrimazole-betamethasone 1 1 appl TOPICAL BID 15 Days #45 g 04/08/21 %-0.05 % topical cream sennosides 8.6 mg tablet (senna) 8.6 mg PO BEDTIME PRN #30 tab 04/20/21 cholecalciferol (vitamin D3) 25 25 mcg PO DAILY 30 Days #30 cap 05/25/21 mcg (1,000 unit) capsule pantoprazole 40 mg tablet,delayed 40 mg PO DAILY 90 Days #90 tab 06/08/21 release cefuroxime axetil 500 mg tablet 500 mg PO BID #14 tab 07/27/21 oxybutynin chloride 10 mg 10 mg PO DAILY #90 tab 07/31/21 tablet,extended release 24 hr ondansetron 4 mg disintegrating 4 mg PO Q8H PRN #6 tab 08/05/21 tablet prednisone 20 mg tablet 40 mg PO DAILY #10 tab 08/05/21 finasteride 5 mg tablet 5 mg PO DAILY 90 Days #90 tab 08/12/21 terazosin 5 mg capsule 5 mg PO BEDTIME 30 Days #90 cap 09/05/21 acetaminophen 650 mg 650 mg PO Q8H PRN #270 tab 09/11/21 tablet,extended release (Mapap Arthritis Pain) gabapentin 300 mg capsule 300 mg PO TID #180 cap 09/11/21 baclofen 20 mg tablet 20 mg PO BID PRN 90 Days #180 tab 09/20/21 celecoxib 200 mg capsule 200 mg PO DAILY PRN 30 Days #30 cap 09/22/21 Allergies Allergy/AdvReac Type Severity Reaction Status Date / Time No Known Allergies Allergy Verified 09/08/21 11:11 Review of Systems Review of Systems: Constitutional : No Weight loss, No Fever, No Chills, No Night Sweats, No Fatigue, No Malaise ENT/Mouth : No Hearing loss, No Ear Pain, No Nasal Congestion, No Sinus Pain, No Hoarseness, No sore throat, No Rhinorrhea, No Swallowing Difficulty Eyes: No Eye Pain, No Swelling, No Redness, No Foreign Body, No Discharge, No Vision Changes Cardiovascular : No Chest Pain, No SOB, No Dyspnea on Exertion, No Orthopnea, No Edema, No Palpitations Respiratory : No Cough, No Sputum, No Wheezing, No Smoke Exposure, No Dyspnea Gastrointestinal : No Nausea, No Vomiting, No Diarrhea, No Constipation, No abdominal Pain, No Hematochezia, No Melena Genitourinary : no irregular bleeding, No Dysuria, No Urinary Frequency, No Hematuria, No Urinary Incontinence, No Urgency, No Flank Pain, No Urinary Flow Changes, No Hesitancy Musculoskeletal : No joint pain, No Myalgias, No Joint Swelling Skin : No Skin Lesions, No rash Neuro : No Weakness, No Numbness, No Paresthesias, No Loss of Consciousness, No Dizziness, No Headache Psych : No Anxiety/Panic, No Depression, No SI/HI/AH/VH, No Social Issues, Heme/Lymph: No Bruising, No Bleeding,No Lymphadenopathy Endocrine : No Polyuria, No Polydipsia, No Temperature Intolerance Yes all other systems are reviewed and are negative [facility] Past Medical History Attestation statement: The following information was validated with the patient. Medical History Arthritis COPD (chronic obstructive pulmonary disease) Dermatitis Herniated lumbar intervertebral disc Hx of cirrhosis Hypertension Muscle cramps Pre-op chest exam Pre-op examination Psoriatic arthritis Surgical History No pertinent past surgical history Family History Family History Mother No problems noted. Father No problems noted. Social History Social History Housing: Apartment Alcohol intake: former Patient Tobacco Use Status: Current everyday Tobacco user Tobacco use type: Cigarette Cigarettes Per Day: 4 e-Cigarette/Vaping Use: Never Used Second Hand Smoke Exposure: No Advance Directives: Yes Advance Directives Information Provided: Yes Advance Directives on File: No service: No Current occupational status: disabled Physical Exam Vital Signs: Vital Signs: Last Vital Signs Temp 98.1 F 09/26/21 08:45 Pulse 67 09/26/21 08:45 Resp 16 09/26/21 08:45 BP 120/59 L 09/26/21 08:45 Pulse Ox 96 09/26/21 08:45 BMI result Body Mass Index 25.5 vital signs have been reviewed as normal and appeared to be correct. Blood pressure normal. Heart rate normal. Respiration rate normal. Temperature normal. Oxygen saturation normal. Appearance: Alert. Oriented X3. No acute distress. Head: Normal external exam. Normocephalic. Eyes: PERRLA. EOMI. Conjunctiva and sclera normal. Eyelids normal. ENT: Pharynx normal. Uvula midline. Moist mucous membranes. Neck: Normal inspection. Neck supple. FROM. No adenopathy. No meningeal signs. CVS: Normal heart rate and rhythm. Heart sound normal. No murmurs noted. Pulses normal throughout. Respiratory: No respiratory distress. Painless inspiration. Abdomen: Soft and nontender. Nondistended. No guarding. No rigidity. Bowel sounds normal in all 4 quadrants. No distention noted. No organomegaly noted. No visible injury noted. No rebound tenderness. Negative Rovsing sign. Negative obturator's sign. Negative psoas sign. Negative Sepulveda sign. : Schulz catheter in the urethral meatus with no swelling to the urethral meatus and no abnormal discharge and no erythema noted. No signs of infection. Schulz catheter tubing is broken. Back: No CVA tenderness. Full range of motion noted. Skin: Skin warm and dry. Normal skin color. Normal skin turgor. No rashes/lesions/lacerations noted. Extremities: Extremities exhibit normal range of motion. Extremities nontender. Neuro: Oriented X 3. No motor deficit. No sensory deficit. Reflexes normal. Course Course Course Narrative: 81-year-old male with a past medical history of hypertension, arthritis, COPD, pulmonary nodules, urinary retention with incomplete bladder emptying, BPH with urinary obstructions/LUTs with chronic Schulz catheter in place presenting to the ED after the tubing from his Schulz catheter broke requesting for his Schulz catheter to be replaced. He denies any other symptoms related to this. Reports that he has a follow-up appointment within the next 1-2 weeks with his urologist. On exam there are no signs of infection. Abdomen is soft and nontender. No CVA tenderness is noted. Therefore at this time will replace Schulz catheter no labs or imaging are indicated at this time. And DC home with instructions to follow-up with PCP/ neurologist and to return if any new or worsening symptoms. Patient and family at bedside understand agree this plan. [facility] - Male Genitourinary Medical Records Attestation: I reviewed the patient's medical records. Discharge Plan Discharge Clinical Impression: Encounter for Schulz catheter replacement Patient Disposition: Home, Self-Care Instructions: Schulz Catheter Placement and Care (ED) Prescriptions: No Action budesonide-formoterol 80-4.5 mcg/actuation HFA aerosol inhaler 2 puff inhalation BID 30 Days Qty: 10.2 RF: 6 lisinopril-hydrochlorothiazide 10-12.5 mg tablet 1 tab PO DAILY 90 Days Qty: 90 RF: 3 Spiriva with HandiHaler 18 mcg capsule, w/inhalation device 1 cap inhalation DAILY 60 Days Qty: 60 RF: 4 polyethylene glycol 3350 [Miralax] 17 gram/dose powder 17 g PO DAILY 10 Days Qty: 170 RF: 0 clotrimazole-betamethasone 1-0.05 % cream 1 appl topical BID 15 Days Qty: 45 RF: 3 sennosides [senna] 8.6 mg tablet 8.6 mg PO BEDTIME PRN (Reason: for constipation) Qty: 30 RF: 6 cholecalciferol (vitamin D3) 25 mcg (1,000 unit) capsule 25 mcg PO DAILY 30 Days Qty: 30 RF: 11 pantoprazole 40 mg tablet,delayed release (DR/EC) 40 mg PO DAILY 90 Days Qty: 90 RF: 2 oxybutynin chloride 10 mg tablet extended release 24hr 10 mg PO DAILY Qty: 90 RF: 0 terazosin 5 mg capsule 5 mg PO BEDTIME 30 Days Qty: 90 RF: 2 gabapentin 300 mg capsule 300 mg PO TID Qty: 180 RF: 0 acetaminophen [Mapap Arthritis Pain] 650 mg tablet extended release 650 mg PO Q8H PRN (Reason: for pain) Qty: 270 RF: 1 baclofen 20 mg tablet 20 mg PO BID PRN (Reason: muscle pain) 90 Days Qty: 180 RF: 0 celecoxib 200 mg capsule 200 mg PO DAILY PRN (Reason: for pain) 30 Days Qty: 30 RF: 1 prednisone 20 mg tablet 40 mg PO DAILY Qty: 10 RF: 0 ondansetron 4 mg tablet,disintegrating 4 mg PO Q8H PRN (Reason: nausea and vomiting) Qty: 6 RF: 0 cefuroxime axetil 500 mg tablet 500 mg PO BID Qty: 14 RF: 0 Otezla 30 mg tablet 30 mg PO BID RF: 0 calcipotriene 0.005 % ointment 1 appl topical BID RF: 0 finasteride 5 mg tablet 5 mg PO DAILY 90 Days Qty: 90 RF: 1 Referrals: Malik Clay MD [Physician] - 2 days Shannan Guthrie MD [Primary Care Provider] - 2 days Print Language: Senegalese
== END 2021-09-26 10:40 | disposition home or self-care (01) ==
PROVIDERS: Emergency Provider Emergency Medicine; PCP Internal Medicine
DX: Z46.6 Encounter for fitting and adjustment of urinary device (principal); N40.1 Benign prostatic hyperplasia with lower urinary tract symptoms; R33.9 Retention of urine, unspecified; I10 Essential (primary) hypertension; Z87.440 Personal history of urinary (tract) infections
CPT/HCPCS: 51702; 99284

== ENCOUNTER → 2021-09-29 08:28 | Outpatient (BNVA) | payer MEDICARE, MEDICAID, SELFPAY | PROVIDERS: PCP Internal Medicine; Visit Provider Urology | DX: N40.1 Benign prostatic hyperplasia with lower urinary tract symptoms (principal); N31.9 Neuromuscular dysfunction of bladder, unspecified; R33.9 Retention of urine, unspecified; F17.210 Nicotine dependence, cigarettes, uncomplicated; Z46.6 Encounter for fitting and adjustment of urinary device | CPT/HCPCS: 52000; 99212 ==

== ENCOUNTER 2021-11-09 07:19 | Outpatient (REF) | payer MEDICARE, MEDICAID, SELFPAY ==
--- NOTE | ~2021-11-09 | CT_ITS ---
EXAMINATION: CT CHEST WITHOUT CONTRAST CLINICAL INFORMATION: Other nonspecific abnormal finding of lung field. COMPARISON: Previous chest x-ray July 2021 TECHNIQUE: Multidetector volumetric CT imaging of the chest was done. Axial MIP volume rendering provided. Sagittal and coronal reformatted images were obtained. This CT examination was performed using dose optimization techniques as appropriate, variously including the following: *Automated exposure control *Adjustment of mA and/or kV according to patient size (this includes techniques or standardized protocols for targeted exams where dose is matched to indication/reason for exam; i.e. extremities or head) *Use of iterative reconstruction technique DLP: 145 mGy-cm FINDINGS: LUNGS: There is severe emphysema with bullous changes at the apices. There is biapical pleural and parenchymal scarring which is greater on the right. There are increased peripheral or subpleural markings in the posterior basal right lower lobe. The appearance is questionable for early interstitial lung disease. There are numerous small calcified pulmonary nodules. The largest calcified pulmonary nodule measures 5 mm in the right lower lobe axial image 259 series 7 and left lower lobe axial image 304 series 7. There is a 2 x 4 mm noncalcified left upper lobe nodule axial image 102 series 7. There is a 3 mm noncalcified left upper lobe nodule axial image 192 series 7. There are 2 adjacent 4 mm noncalcified left upper lobe nodules axial images 242 and 244 series 7. There is a 4 mm peripheral or subpleural noncalcified right lower lobe nodule adjacent to the major fissure axial image 306 series 7 and 2 mm right lower lobe nodule axial image 352 series 7. Probably represent subpleural lymph nodes. MEDIASTINUM: There is evidence of atherosclerotic disease. The heart does not appear enlarged. There is coronary artery and aortic valve calcification. There is a trace pericardial effusion or thickening. There are no enlarged hilar or mediastinal lymph nodes. PLEURA: There is no pleural effusion. No pleural mass or thickening. AXILLA: No lymphadenopathy. UPPER ABDOMEN: There is diverticulosis of the colon. There is high attenuation seen dependently in the gallbladder questionable for possible gallstones. OSSEOUS STRUCTURES: There may be old posterior right lower rib fractures. There are degenerative changes of the spine. There is a small 4 mm sclerotic lesion in the inferior right T2 vertebral body. CT/CT chest wo con IMPRESSION: Severe emphysema with bullous changes at the lung apices. Multiple calcified and noncalcified pulmonary nodules. Question early interstitial lung disease at the right lung base versus dependent atelectasis. Chest CT followup in 1 year recommended. Prone imaging could be performed to assess for possible interstitial lung disease versus dependent atelectasis. Severe atherosclerotic disease. Coronary artery calcification. Fleischner guidelines were followed.
== END 2021-11-09 07:20 | disposition home or self-care (01) ==
LOC: HO.CT 07:19
PROVIDERS: PCP Internal Medicine; Visit Provider Internal Medicine Pulmonary Disease
DX: R91.8 Other nonspecific abnormal finding of lung field (principal)
CPT/HCPCS: 71250

== ENCOUNTER 2021-11-11 10:49 | Outpatient (REF) | payer MEDICARE, MEDICAID, SELFPAY ==
--- NOTE | 2021-11-11 15:56 | PFT_ITS ---
FLOWS: FEV1 65% of predicted at 2.08 L. FVC 120% of predicted at 4.95 L. FEV1 to FVC ratio of 0.42. No bronchodilator response. LUNG VOLUMES: Total lung capacity 105% of predicted at 7.68 L. Residual volume 107% of predicted at 2.93 L. Slow vital capacity 105% of predicted at 4.76 L. Expiratory reserve volume 145% of predicted at 1.77 L. Diffusion capacity is severely decreased. IMPRESSION: Moderate obstructive ventilatory defect with no bronchodilator response. Decreased diffusion capacity suggests emphysema. Sathya Bal MD AP/MODL / [id number]
== END 2021-11-11 10:50 | disposition home or self-care (01) ==
LOC: HO.RESP 10:49
PROVIDERS: PCP Internal Medicine; Visit Provider Internal Medicine Pulmonary Disease
DX: J44.9 Chronic obstructive pulmonary disease, unspecified (principal)
CPT/HCPCS: 94060; 94727; 94729

== ENCOUNTER 2021-11-23 07:53 | Outpatient (REF) | payer MEDICARE, MEDICAID, SELFPAY ==
[2021-11-23 09:01] LABS: Alanine Aminotransferase 9 U/L (0-40); Alkaline Phosphatase 69 U/L (39-117); Anion Gap 11 (12-20); Aspartate Amino Transferase 15 U/L (5-37); Bilirubin Total 0.4 mg/dL (0.0-1.0); Blood Urea Nitrogen 17 mg/dL (9-16); Calcium 9.9 mg/dL (8.4-10.2); Carbon Dioxide 29 mmol/L (22-29); Chloride 105 mmol/L (96-108); Cholesterol 193 mg/dL; Estimated Glomerular Filt Rate 41; Glucose Fasting 110 mg/dL (60-99); HDL Cholesterol 32 mg/dL; LDL Cholesterol Calculated 127 mg/dl; Potassium 3.9 mmol/L (3.3-5.1); Sodium 141 mmol/L (135-145); Triglycerides 170 mg/dL
[2021-11-28 14:11] LABS: Vitamin D 25-OH, D2 15 ng/mL; Vitamin D 25-OH, D3 22 ng/mL; Vitamin D 25-OH, Total 37 ng/mL (30-100)
== END 2021-11-23 07:54 | disposition home or self-care (01) ==
LOC: HO.LAB 07:53
PROVIDERS: PCP Internal Medicine; Visit Provider Internal Medicine
DX: I10 Essential (primary) hypertension (principal); E55.9 Vitamin D deficiency, unspecified
CPT/HCPCS: 36415; 80053; 80061; 82306

== ENCOUNTER → 2021-12-06 09:20 | Outpatient (BNVA) | payer MEDICARE, SELFPAY | PROVIDERS: PCP Internal Medicine; Visit Provider Internal Medicine Pulmonary Disease | DX: J44.9 Chronic obstructive pulmonary disease, unspecified (principal); R91.8 Other nonspecific abnormal finding of lung field | CPT/HCPCS: 99212 ==

== ENCOUNTER → 2021-12-14 08:32 | Outpatient (BNVA) | payer MEDICARE, SELFPAY | PROVIDERS: PCP Internal Medicine; Visit Provider Urology | DX: N31.9 Neuromuscular dysfunction of bladder, unspecified (principal) | CPT/HCPCS: 51701; 51702; 51798; 99212 ==

== ENCOUNTER → 2022-01-11 08:25 | Outpatient (BNVA) | payer MEDICARE, SELFPAY | PROVIDERS: PCP Internal Medicine; Visit Provider Urology | DX: N31.9 Neuromuscular dysfunction of bladder, unspecified (principal) | CPT/HCPCS: 51700; 99212 ==

== ENCOUNTER → 2022-01-31 09:41 | Outpatient (BNVA) | payer MEDICARE, SELFPAY | PROVIDERS: PCP Internal Medicine; Visit Provider Urology | DX: R33.9 Retention of urine, unspecified (principal) | CPT/HCPCS: 51702 ==

== ENCOUNTER 2022-02-07 16:55 | Emergency (ER) | payer MEDICARE, SELFPAY ==
--- NOTE | ~2022-02-07 | XR_ITS ---
EXAMINATION: RIGHT ELBOW, SACRUM AND COCCYX CLINICAL INFORMATION: Elbow and sacral pain COMPARISON: None TECHNIQUE: 3 views right elbow, 3 views sacrum and coccyx FINDINGS: Elbow: No significant bone joint or soft tissue abnormality is seen. Sacrum and coccyx: Large amount of gas and stool overlies the sacrum limiting evaluation. No fracture or bony destructive lesion is seen. Degenerative changes are noted in the lower lumbosacral spine. There is evidence of a mesh hernia repair in the right groin. XR/XR sacrum coccyx min 2V IMPRESSION: Degenerative changes present in the lower lumbosacral spine. The exams are otherwise negative
--- NOTE | ~2022-02-07 | XR_ITS ---
EXAMINATION: RIGHT ELBOW, SACRUM AND COCCYX CLINICAL INFORMATION: Elbow and sacral pain COMPARISON: None TECHNIQUE: 3 views right elbow, 3 views sacrum and coccyx FINDINGS: Elbow: No significant bone joint or soft tissue abnormality is seen. Sacrum and coccyx: Large amount of gas and stool overlies the sacrum limiting evaluation. No fracture or bony destructive lesion is seen. Degenerative changes are noted in the lower lumbosacral spine. There is evidence of a mesh hernia repair in the right groin. XR/XR elbow RT 2V IMPRESSION: Degenerative changes present in the lower lumbosacral spine. The exams are otherwise negative
[2022-02-07 17:43] VITALS: BP 124/61; PULSE 68; RESP 18; TEMP 36.6; O2SAT 98; BMI 25.7
[2022-02-07] MEDS: Acetaminophen 325 MG TABLET 650 MG PO (17:48)
--- NOTE | 2022-02-07 19:31 | ED.FALL ---
HPI - Fall General Chief Complaint: Fall Stated Complaint: fell hurt elbow Time Seen by Provider: 02/07/22 19:31 Source: patient Mode of arrival: ambulatory Limitations: no limitations History of Present Illness HPI Narrative: 81 y/o male with history of COPD, GERD, chronic leg and knee pain, BPH, psoriatic arthrtis, neurogenic bladder, HTN who presents to the ER for evaluation of right elbow pain and swelling along with tailbone pain after falling 2 days ago. He states he was getting out of the bus when he slipped and fell onto his buttock and right elbow. He denies any lightheadedness, dizziness, chest pain, shortness of breath or prodromal symptoms before falling. He is able to get up easily after he fell. He reports ongoing right elbow pain since with some swelling over the elbow joint. He is able to fully extend and bend the elbow denies any numbness or tingling. He denies any bruising of his buttock or flanks. Has no pain with walking or sitting. MD complaint: fall Onset (ago): day(s) (2) Fall from: standing Fall witnessed: no Place fall occurred: street Loss of consciousness: none Prolonged down time: no Symptoms prior to fall: none Context: tripped/slipped Location of injury: buttocks Location of injury - extremities: right: elbow Severity: mild Severity scale (1-10): 4 Quality: aching Associated symptoms (after fall): denies Related Data Home Medications Medication Instructions Recorded Confirmed apremilast 30 mg tablet (Otezla) 30 mg PO BID 06/30/21 11/21/21 calcipotriene 0.005 % topical 1 appl TOPICAL BID 08/12/21 11/21/21 ointment Previous Rx's Medication Instructions Recorded lisinopril 10 1 tab PO DAILY 90 Days #90 tab 03/16/21 mg-hydrochlorothiazide 12.5 mg tablet polyethylene glycol 3350 17 17 g PO DAILY 10 Days #170 g 03/16/21 gram/dose oral powder (Miralax) clotrimazole-betamethasone 1 1 appl TOPICAL BID 15 Days #45 g 04/08/21 %-0.05 % topical cream cholecalciferol (vitamin D3) 25 25 mcg PO DAILY 30 Days #30 cap 05/25/21 mcg (1,000 unit) capsule pantoprazole 40 mg tablet,delayed 40 mg PO DAILY 90 Days #90 tab 06/08/21 release cefuroxime axetil 500 mg tablet 500 mg PO BID #14 tab 07/27/21 ondansetron 4 mg disintegrating 4 mg PO Q8H PRN #6 tab 08/05/21 tablet finasteride 5 mg tablet 5 mg PO DAILY 90 Days #90 tab 08/12/21 terazosin 5 mg capsule 5 mg PO BEDTIME 30 Days #90 cap 09/05/21 acetaminophen 650 mg 650 mg PO Q8H PRN #270 tab 09/11/21 tablet,extended release (Mapap Arthritis Pain) budesonide-formoterol HFA 80 2 puff INHALATION BID 30 Days 10/03/21 mcg-4.5 mcg/actuation aerosol #10.2 g inhaler oxybutynin chloride 10 mg 10 mg PO DAILY #90 tab 10/23/21 tablet,extended release 24 hr sennosides 8.6 mg tablet (senna) 8.6 mg PO BEDTIME PRN #30 tab 12/01/21 baclofen 20 mg tablet 20 mg PO BID PRN 90 Days #180 tab 12/12/21 gabapentin 300 mg capsule 300 mg PO TID #180 cap 12/12/21 tiotropium bromide 18 mcg capsule 1 cap INHALATION DAILY 60 Days #60 12/21/21 with inhalation device (Spiriva inh with HandiHaler) celecoxib 200 mg capsule 200 mg PO DAILY PRN 30 Days #30 cap 01/04/22 diclofenac sodium 1 % topical gel 2 g TOPICAL QID #100 g 01/29/22 (Voltaren Arthritis Pain) ciprofloxacin HCl 500 mg tablet 500 mg PO BID 5 Days #10 tab 01/31/22 (Cipro) Allergies Allergy/AdvReac Type Severity Reaction Status Date / Time No Known Allergies Allergy Verified 01/11/22 08:57 Review of Systems Review of Systems: Constitutional: No Fever, No Chills Cardiovascular: No Chest Pain, No SOB Gastrointestinal: No Nausea, No Vomiting, No abdominal Pain Genitourinary: No Hematuria Musculoskeletal: + joint pain, No Myalgias, +swollen joint Skin: No Skin Lesions, No rash Neuro: No Weakness, No Numbness, No Dizziness, No Headache Psych: No Anxiety/Panic, No Depression Heme/Lymph: No Bruising, No Lymphadenopathy PMFSH Past Medical History Medical History Arthritis Chronic GERD COPD (chronic obstructive pulmonary disease) Dermatitis Herniated lumbar intervertebral disc Hx of cirrhosis Hypertension Muscle cramps Pre-op chest exam Pre-op examination Psoriatic arthritis Surgical History No pertinent past surgical history Family History Family History Mother No problems noted. Father No problems noted. Social History Social History Housing: Apartment Alcohol intake: former Patient Tobacco Use Status: Current everyday Tobacco user Tobacco use type: Cigarette Cigarettes Per Day: 4 e-Cigarette/Vaping Use: Never Used Second Hand Smoke Exposure: No Advance Directives: No Advance Directives Information Provided: No service: No Current occupational status: disabled Physical Exam Vital Signs: Vital Signs: Last Vital Signs Temp 97.8 F 02/07/22 17:43 Pulse 68 02/07/22 17:43 Resp 18 02/07/22 17:43 BP 124/61 02/07/22 17:43 Pulse Ox 98 02/07/22 17:43 BMI result Body Mass Index 25.7 Appearance: Alert. Oriented X3. No acute distress. HEENT: normal inspection CVS: Normal heart rate and rhythm. Pulses normal. Respiratory: No respiratory distress. Skin: Skin warm and dry. Normal skin color. Normal skin turgor. No rashes. Extremities: Right elbow with mild localized swelling over the elbow joint with minimal tenderness, normal range of motion of the elbow shoulder and wrist. No warmth of the elbow or erythema. Swelling is soft. No open wounds. Back: Normal inspection, no ecchymosis. Tenderness of the low lumbar and sacral area without any point tenderness. Able to sit comfortably. Neuro: Oriented X 3. No motor deficit. No sensory deficit. Ambulates with steady gait Course Course Course Narrative: 81-year-old male presents to the ER for evaluation of right elbow pain and swelling as well as mild coccyx pain after he slipped while coming off of the bus 2 days ago. His right elbow has palpable joint effusion over the olecranon. He has normal range of motion with minimal tenderness. Placed in Todd wrap for compression and support. His x-rays today did not show any acute traumatic injury some degenerative changes in the lower back were noted. Discussed results and management of effusion and bursitis with the patient and his family member who speaks Divehi. Stable for discharge home with supportive care and outpatient follow-up with ortho if no improvement in 1-2 weeks. Critical Care Time Critical Care Time Critical Care Time: No Discharge Plan Discharge Clinical Impression: Effusion of elbow joint, right, Olecranon bursitis Patient Disposition: Home, Self-Care Instructions: Elbow Bursitis (ED), Swollen Joint (ED) Additional Instructions: Your x-rays today did not show any traumatic injuries. Exam was consistent with fluid in the joint - this should improve with time, compression with TODD wrap, elevation and ice If you are still experiencing discomfort recommend following up with orthopedics in the next 1-2 weeks Prescriptions: No Action lisinopril-hydrochlorothiazide 10-12.5 mg tablet 1 tab PO DAILY 90 Days Qty: 90 3RF polyethylene glycol 3350 [Miralax] 17 gram/dose powder 17 g PO DAILY 10 Days Qty: 170 0RF clotrimazole-betamethasone 1-0.05 % cream 1 appl topical BID 15 Days Qty: 45 3RF cholecalciferol (vitamin D3) 25 mcg (1,000 unit) capsule 25 mcg PO DAILY 30 Days Qty: 30 11RF pantoprazole 40 mg tablet,delayed release (DR/EC) 40 mg PO DAILY 90 Days Qty: 90 2RF terazosin 5 mg capsule 5 mg PO BEDTIME 30 Days Qty: 90 2RF acetaminophen [Mapap Arthritis Pain] 650 mg tablet extended release 650 mg PO Q8H PRN (Reason: for pain) Qty: 270 1RF budesonide-formoterol 80-4.5 mcg/actuation HFA aerosol inhaler 2 puff inhalation BID 30 Days Qty: 10.2 6RF oxybutynin chloride 10 mg tablet extended release 24hr 10 mg PO DAILY Qty: 90 0RF sennosides [senna] 8.6 mg tablet 8.6 mg PO BEDTIME PRN (Reason: for constipation) Qty: 30 6RF gabapentin 300 mg capsule 300 mg PO TID Qty: 180 0RF baclofen 20 mg tablet 20 mg PO BID PRN (Reason: muscle pain) 90 Days Qty: 180 0RF Spiriva with HandiHaler 18 mcg capsule, w/inhalation device 1 cap inhalation DAILY 60 Days Qty: 60 4RF celecoxib 200 mg capsule 200 mg PO DAILY PRN (Reason: for pain) 30 Days Qty: 30 1RF diclofenac sodium [Voltaren Arthritis Pain] 1 % gel 2 g topical QID Qty: 100 0RF Rx Instructions: apply to single elbow, wrist or hand; for hand includes palm/fingers/back of hand ondansetron 4 mg tablet,disintegrating 4 mg PO Q8H PRN (Reason: nausea and vomiting) Qty: 6 0RF cefuroxime axetil 500 mg tablet 500 mg PO BID Qty: 14 0RF Otezla 30 mg tablet 30 mg PO BID 0RF calcipotriene 0.005 % ointment 1 appl topical BID 0RF finasteride 5 mg tablet 5 mg PO DAILY 90 Days Qty: 90 1RF ciprofloxacin HCl [Cipro] 500 mg tablet 500 mg PO BID 5 Days Qty: 10 0RF Referrals: Bernabe Ochoa PA-C [Physician Primary Education Professor] - 2 weeks (traumatic right elbow effusion) Print Language: French
== END 2022-02-07 20:14 | disposition home or self-care (01) ==
PROVIDERS: Emergency Provider Emergency Medicine Emergency Medical Services; PCP Internal Medicine
DX: M70.21 Olecranon bursitis, right elbow (principal); M25.421 Effusion, right elbow; M53.3 Sacrococcygeal disorders, not elsewhere classified; Z79.899 Other long term (current) drug therapy
CPT/HCPCS: 72220; 73070; 99283; 99284

== ENCOUNTER → 2022-02-13 08:24 | Outpatient (BNVA) | payer MEDICARE, SELFPAY | PROVIDERS: PCP Internal Medicine; Visit Provider Internal Medicine Pulmonary Disease | DX: Z01.811 Encounter for preprocedural respiratory examination (principal); J44.9 Chronic obstructive pulmonary disease, unspecified; R91.8 Other nonspecific abnormal finding of lung field; Z79.899 Other long term (current) drug therapy | CPT/HCPCS: 99212 ==

== ENCOUNTER 2022-03-23 15:29 | Outpatient (REF) | payer MEDICARE, SELFPAY ==
[2022-03-23 16:13] LABS: Hematocrit 37.2 % (42.0-52.0); Hemoglobin 12.3 g/dl (14.0-18.0); Mean Corpuscular HGB Conc 33.1 g/dl (31.0-36.0); Mean Corpuscular Hemoglobin 30.7 pg (27.0-33.0); Mean Corpuscular Volume 92.8 fL (80.0-98.0); Mean Platelet Volume 10.3 fL (9.4-12.4); Platelet Count 239 X10*3/uL (160-400); Red Blood Count 4.01 X10*6/uL (4.60-5.80); Red Cell Distribution Width 13.2 % (11.0-16.0); White Blood Count 9.5 X10*3/uL (4.8-10.8)
[2022-03-23 16:43] LABS: Anion Gap 12 (12-20); Blood Urea Nitrogen 24 mg/dL (9-16); Calcium 10.1 mg/dL (8.4-10.2); Carbon Dioxide 29 mmol/L (22-29); Chloride 102 mmol/L (96-108); Estimated Glomerular Filt Rate 43; Glucose Random 85 mg/dL (60-115); Potassium 4.1 mmol/L (3.3-5.1); Sodium 139 mmol/L (135-145)
== END 2022-03-23 15:30 | disposition home or self-care (01) ==
LOC: HO.LAB 15:29
PROVIDERS: PCP Internal Medicine; Visit Provider Nurse Practitioner Family
DX: N17.9 Acute kidney failure, unspecified (principal)
CPT/HCPCS: 36415; 80048; 85027

== ENCOUNTER → 2022-04-14 09:10 | Outpatient (BNVA) | payer MEDICARE, SELFPAY | PROVIDERS: PCP Internal Medicine; Visit Provider Urology | DX: Z46.6 Encounter for fitting and adjustment of urinary device (principal) | CPT/HCPCS: 51702 ==

== ENCOUNTER → 2022-05-05 08:16 | Outpatient (BNVA) | payer MEDICARE, SELFPAY | PROVIDERS: PCP Internal Medicine; Visit Provider Urology | DX: R33.9 Retention of urine, unspecified (principal) | CPT/HCPCS: 51702 ==

== ENCOUNTER → 2022-05-19 13:49 | Outpatient (BNVA) | payer MEDICARE, SELFPAY | PROVIDERS: PCP Internal Medicine; Visit Provider Urology | DX: R33.9 Retention of urine, unspecified (principal) | CPT/HCPCS: 99211 ==

== ENCOUNTER → 2022-05-26 08:33 | Outpatient (BNVA) | payer MEDICARE, SELFPAY | PROVIDERS: PCP Internal Medicine; Visit Provider Urology | DX: R33.9 Retention of urine, unspecified (principal) | CPT/HCPCS: 51701; 99212 ==

== ENCOUNTER → 2022-06-13 07:15 | Outpatient (REF) | payer MEDICARE, SELFPAY ==
--- NOTE | 2022-06-13 07:18 | CA_ITS ---
Transthoracic Echocardiogram Patient (Last, First, Middle): Stephan Lyons R Gender: Male Date of : 1940 Age: 81 Procedure Date: 06/13/2022 Procedure Type: Transthoracic Echocardiogram Location: OP Height: 180.34 cm Weight: 85.28 kg BSA: 2.05 m2 Heart Rate: bpm BP: 130 / 70 mmHg [place] Spray Unit Adjuster: TO Referring MD: Noe Crain MD Symptoms: Z01.810 - Encounter for preprocedural cardiovascular examination Study Quality: Adequate ECG Rhythm: Sinus Conclusions: - The left ventricular systolic function is mildly decreased. The visually estimated ejection fraction is between 40-45%. - Evidence suggests grade II (moderate) diastolic dysfunction. - There is mild to moderate mitral valve regurgitation. Findings Left Ventricle Mildly increased left ventricular cavity size. There is mildly increased left ventricular wall thickness. The left ventricular systolic function is mildly decreased. The visually estimated ejection fraction is between 40 45%. There is evidence of regional wall motion abnormalities. There is mild global hypokinesis. Evidence suggests grade II (moderate) diastolic dysfunction. Wall Motion Rest Echo Findings The basal inferior segment is akinetic. Right Ventricle Normal right ventricular cavity size and systolic function. Atria Both atria are normal in size. Aortic Valve There is a normal trileaflet aortic valve. There is mild calcification of the aortic valve. There is no aortic valve stenosis. There is no aortic valve regurgitation. Mitral Valve There is mild mitral annular calcification. There is mild to moderate mitral valve regurgitation. There is no mitral valve stenosis. Pulmonic Valve The pulmonic valve is likely normal. Tricuspid Valve Normal tricuspid valve structure. There is mild tricuspid valve regurgitation. The pulmonary artery systolic pressure is normal. Great Vessels The aortic annulus, sinuses of valsalva, and asc aorta are normal in size. Venous The inferior vena cava is normal in size and collapses greater than 50% with inspiration. Pericardium/Pleural There is no evidence of pericardial effusion. Prior Study Comparison No prior study available for comparison. Recommendations, Care & Conclusions No obvious valvular pathology seen on this study. Measurements 2D Linear Measurements IVSd: 1.15 0.6-0.9/0.6-1.0 cm LVIDd: 5.68 3.9-5.3/4.2-5.9 cm LVIDd Index: 2.77 2.4-3.2/2.2-3.1 cm/m2 LVIDs: 4.45 2.0-3.6 cm LVPWd: 1.07 0.7-1.1 cm LA Diam: 3.80 2.7-3.8/3.0-4.0 cm LAIDs Index: 1.85 1.5-2.3 cm/m2 LV Mass: 322.18 67-162/88-224 g LV Mass Index: 157.16 43-95/49-115 g/m2 LVOT Diam: 2.20 3.0+(-)1.3 cm 2D Systolic Function EF 4C: 46.20 >55% EF 2C: 45.60 >55% EF BiP: 44.80 >55% Mitral Valve MV Pk E: 1.06 MV PK A: 0.64 MV Decel Time: 206.00 E/A: 1.70 E'Lateral: 3.26 E'Medial: 5.77 E/E' Med: 18.40 E/E' Lat: 32.50 PHT: 60.00 MVA PHT: 3.67 Decel [place]: 5.14 Aortic Valve AoV Pk Joel: 1.10 AoV Mn Joel: 0.80 AoV VTI: 0.29 AoV Pk Grad: 5.00 Aov Mn Grad: 3.00 VERENICE Cont.VTI: 2.57 LVOT LVOT Pk Joel: 0.85 LVOT Mn Joel: 0.51 LVOT VTI: 0.20 LVOT Pk Grad: 3.00 LVOT Mn Grad: 1.00 LVOT Diam: 2.20 LVOT Area: 3.80 Diastolic Function MV Pk E: 1.06 MV Pk A: 0.64 E/A: 1.70 E'Medial: 5.77 E/E' Med: 18.40 E' Laterial: 3.26 E/E' Lat: 32.50 Right Ventricle TAPSE (mm): 23.40 TVS' Joel: 11.50 Tricuspid Valve TR Pk Joel: 2.55 TR Pk Grad: 26.00 RA Press: 3.00 RVSP: 29.00 Great Vessels Aorta Sinus of Valsalva: 3.82 2.0-3.[address] [place]: 2.89 1.7-3.4 cm Ao Asc: 3.60 2.1-3.4 cm Updated in Other Vendor System with Status of Final Noe Crain MD electronically signed on 06/14/2022 12:48:08 PM with status of Final
== END ==
LOC: HO.CARD 07:15
PROVIDERS: PCP Internal Medicine; Visit Provider Internal Medicine
DX: Z01.810 Encounter for preprocedural cardiovascular examination (principal); I49.8 Other specified cardiac arrhythmias; I49.5 Sick sinus syndrome; I10 Essential (primary) hypertension; J43.9 Emphysema, unspecified; R91.8 Other nonspecific abnormal finding of lung field; F17.210 Nicotine dependence, cigarettes, uncomplicated; Z79.899 Other long term (current) drug therapy
CPT/HCPCS: 93005; 93306; 99202; 99212

== ENCOUNTER 2022-06-19 11:33 | Day surgery (SDC) | payer MEDICARE, SELFPAY ==
[2022-06-14 14:03] VITALS: BMI 24.8
[2022-06-19] MEDS: Lactated Ringers 1,000 ML 50 ML IVCONT (12:13)
[2022-06-19 12:21] VITALS: BP 164/80; PULSE 58; RESP 18; TEMP 36.4; O2SAT 95
--- NOTE | 2022-06-19 12:48 | HO.ANESPROP2 ---
[facility] Active Problems Active Problems: All Active Problems (Updated 06/15/22 @ 12:50 by Noe Crain MD) Atherosclerotic cardiovascular disease (Acute) Preoperative cardiovascular examination (Acute) Atrial arrhythmia (Acute) Retention of urine (Acute) Constipation (Acute) Chronic kidney disease, stage 3 (Acute) Acute kidney failure (Acute) Sick sinus syndrome (Acute) CKD (chronic kidney disease) (Acute) Lumbar degenerative disc disease (Acute) Preop pulmonary/respiratory exam (Acute) Chronic GERD (Acute) Bilateral knee pain (Acute) Bilateral leg pain (Acute) UTI (urinary tract infection) (Acute) Neurogenic urinary bladder disorder (Acute) Pulmonary nodules (Acute) Urinary retention with incomplete bladder emptying (Acute) BPH w urinary obs/LUTS (Acute) Muscle cramps (Acute) COPD (chronic obstructive pulmonary disease) (Acute) Psoriatic arthritis (Acute) Pre-op chest exam (Acute) Herniated lumbar intervertebral disc (Acute) Pre-op examination (Acute) Dermatitis (Acute) Hx of cirrhosis (Acute) Arthritis (Acute) Hypertension (Acute) Past Medical History Medical History Arthritis Chronic GERD Chronic kidney disease, stage 3 Constipation COPD (chronic obstructive pulmonary disease) Dermatitis Herniated lumbar intervertebral disc Hx of cirrhosis Hypertension Lumbar degenerative disc disease Muscle cramps Pre-op chest exam Pre-op examination Psoriatic arthritis Family History Family History Mother No problems noted. Father No problems noted. Family history of problems with anesthesia: No Surgical History Surgical History No pertinent past surgical history History of Problems with Anesthesia: No Social History Social History Housing: Apartment Alcohol intake: former Patient Tobacco Use Status: Current everyday Tobacco user Tobacco use type: Cigarette Cigarettes Per Day: 4 Smoked in Last 30 Days: Yes e-Cigarette/Vaping Use: Never Used Patient Interested in Nicotine Replacement: No Second Hand Smoke Exposure: No Are you DNR?: No Advance Directives: No Advance Directives Information Provided: Yes Advance Directives on File: No Nutrition Risks: No Nutritional Risk service: No Current occupational status: disabled Cognitive needs: Yes Hearing needs: No Vision needs: Yes Meds Allergies Allergy/AdvReac Type Severity Reaction Status Date / Time No Known Allergies Allergy Verified 06/19/22 12:29 Active Medications: Current Medications Lactated Ringer's (Lr) 1,000 mls @ 50 mls/hr IVCONT .Q20H RADU Last Admin: 06/19/22 12:13 Dose: 50 mls/hr Home Medications Medication Instructions Recorded Confirmed Last Taken Type apremilast 30 mg tablet (Otezla) 30 mg PO BID 06/30/21 06/12/22 Unknown History calcipotriene 0.005 % topical 1 appl topical BID 08/12/21 06/12/22 Unknown History ointment Exam Exam Date and Time: June 19, 2022 1248 Height,Weight and Vital Signs: Height 5 ft 10 in Weight 78.471 kg Last Vital Signs Temp 97.5 F 06/19/22 12:21 Pulse 58 06/19/22 12:21 Resp 18 06/19/22 12:21 BP 164/80 H 06/19/22 12:21 Pulse Ox 95 06/19/22 12:21 O2 Del Method 06/19/22 12:21 Airway Mallampati Class: II TM Dist: >3cm Neck ROM: Full Denture: Upper and Lower Heart: rrr Lungs: cta Assessment and Plan Assessment Anesthesia Assessment: Anesthesia Plan Discussed Final Anesthetic Review Family History of Problems with Anesthesia: No History of Problems with Anesthesia: No NPO: Yes ASA Class: III Final Preanesthetic Review: No Changes in Pt Med Stat, Meds/Allgs Chart Reviewed and Consent Obtained/Reviewed Patient Risk: Intermediate Procedure Risk: Intermediate Anesthetic Plan Anesthetic Plan: MAC: Disposition: Standard PACU
[2022-06-19] MEDS: levoFLOXacin 500 MG TABLET PO (13:18)
[2022-06-19] MEDS: Acetaminophen 325 MG TABLET 650 MG PO (13:18)
--- NOTE | 2022-06-19 14:02 | MHC.SHP ---
Pre-Procedural Eval Section A Date of Service: 06/19/22 The patient is an INPATIENT: No Changes since office visit: No Cold of Flu in the past 2 weeks, No New Medical Problems, No Changes in Medication and No Patient answered all questions The History & Physical has been completed within 30 days and I have reviewed it.: Yes Section B Chief Complaint: urine rentension Details of Present Illness: cystoscopy, suprapubic tube placement Allergies: Allergies Allergy/AdvReac Type Severity Reaction Status Date / Time No Known Allergies Allergy Verified 06/19/22 12:29 Review of Systems Sugical H&P ROS: Negative: Constitution, Cardiovascular, Respiratory, Neurological, Psychiatric, Hem-Onc, Allergic/Immunologic, Gastrointestinal, Genitourinary, Musculoskeletal, Integumentary, Endocrine and Eyes/Ears/Nose/Throat Exam Surgical H&P Exam: Normal: HEENT, Normal: Heart, Normal: Lungs, Normal: Extremities, Normal: Abdomen, Normal: Skin and Normal: Neurological Plan Diagnosis/Plan: Unchanged ( cystoscopy, suprapubic tube placement) I have reviewed the history and physical and performed a pertinent physical examination on my patient. No changes have occurred unless specified.
[2022-06-19 14:42] VITALS: BP 116/55; PULSE 55; RESP 12; TEMP 36.2; O2SAT 95
[2022-06-19 14:57] VITALS: BP 164/82; PULSE 58; RESP 14; TEMP 36.1; O2SAT 95
[2022-06-19 15:12] VITALS: BP 180/88; PULSE 56; RESP 16; O2SAT 95
[2022-06-19 15:27] VITALS: BP 175/85; PULSE 54; RESP 16; TEMP 36.1; O2SAT 95
--- NOTE | 2022-11-08 10:11 | P.OP_ITS ---
Operative Note Operative Note Date of Service: 06/19/22 Narrative: PreOperative Diagnosis:?neurogenic bladder Post Operative Diagnosis:?neurogenic bladder Procedure:? 1. Cystoscopy 2. Suprapubic tube placement Surgeon: Dr Malik Clay Anesthesia:?Sedation plus local Indications for procedure: He failed multiple voiding trials in office. Procedure: After informed consent was verified the patient was brought to the operating room and placed in a supine position.? Anesthesia was administered per protocol. The patient was placed in a modified dorsal lithotomy position and prepped and draped in a sterile fashion. A safety pause was performed confirming patient identity, procedure and antibiotics. A 22 [place] cystoscope was inserted per urethra. Bladder was examined in its entirety. No abnormalities seen. Air bubble was located at the dome of the bladder. A finder needle was inserted 2 fingerbreaths above the symphysis pubis on the abdomen into the bladder.? The needle was visualized in the bladder via cystoscopy. Local anesthetic was infiltrated subcutaneously around the needle introduction site. A small, 1cm horizontal incision was made.? A trocar introducer was advanced through the abdominal wall into the bladder under visualization. The obturator was removed and a 16 Fr jc catheter placed. 7cc was used to inflate the balloon. The external portion of the trocar was removed. Dressing was placed, the bladder was emptied, and a drainage bag was attached. The patient tolerated the procedure and was transferred in stable condition to the recovery area. Suprapubic tube will be changed in 1 month with a follow-up office visit.
== END 2022-06-19 15:40 | disposition home or self-care (01) ==
PROVIDERS: PCP Internal Medicine; Visit Provider Urology
PROC: (CPT 51102; principal; 2022-06-19 13:40)
DX: N31.9 Neuromuscular dysfunction of bladder, unspecified (principal); R33.9 Retention of urine, unspecified; I12.9 Hypertensive chronic kidney disease with stage 1 through stage 4 chronic kidney disease, or unspecified chronic kidney disease; N18.30 Chronic kidney disease, stage 3 unspecified; L40.50 Arthropathic psoriasis, unspecified; J44.9 Chronic obstructive pulmonary disease, unspecified; K21.9 Gastro-esophageal reflux disease without esophagitis; R25.2 Cramp and spasm; Z79.51 Long term (current) use of inhaled steroids; Z79.899 Other long term (current) drug therapy; F17.210 Nicotine dependence, cigarettes, uncomplicated
CPT/HCPCS: 51102; J2370; J2795; J3010